=== PATIENT | female | born 1950 | race Caucasian/White ===

== ENCOUNTER 2017-05-28 12:30 | Outpatient (RCR) | payer MEDICARE, OTHER ==
[~2017-05-28 12:30] MED LIST: CALCIUM + D 6001 TAB PO; CITRACAL + D 251 TAB PO; CITRACAL + D CA1 TAB; COLACE 100100 MG/CAP PO; FISH OIL REGUL300 MG PO; LIPITOR 10MG10 MG PO; LIQUID MAGNESI400 MG PO; NIACIN500 M3 PO; PATADAY 2.5 ML2.5 ML OU; PREDNISONE20 MG PO; PRINIVIL10 MG PO; PYRIDIUM 100MG100 MG PO; RESTASIS0.05%; VITAMIN D31000 IU PO; VITAMIN D32000 I1 PO; WOMEN'S ONE DAI1 TAB PO; [UNRECOGNIZED DRUG - MIXTURE] TOP; [UNRECOGNIZED DRUG - OTHER] PO; [UNRECOGNIZED DRUG - OTHER] PO
== END 2017-07-12 15:07 ==
LOC: WSOT 12:30
DX: G56.03 Carpal tunnel syndrome, bilateral upper limbs (principal); M19.90 Unspecified osteoarthritis, unspecified site
CPT/HCPCS: G8987-GO; G8988-GO